=== PATIENT | female | born 1995 | race Caucasian/White ===

== ENCOUNTER 2016-08-26 22:53 | Emergency (ER) | payer OTHER | END 2016-08-27 03:30 | disposition home or self-care (01) | LOC: ER1 22:53 | DX: L05.01 Pilonidal cyst with abscess (principal); L03.317 Cellulitis of buttock; Z88.1 Allergy status to other antibiotic agents; F17.210 Nicotine dependence, cigarettes, uncomplicated | CPT/HCPCS: 10060; 36415; 81001; 84703; 87070; 87086; 87205; 99283 ==